=== PATIENT | male | born 1950 | race Caucasian/White ===

== ENCOUNTER 2018-02-08 19:58 | Emergency (ER) | payer MEDICARE, OTHER ==
[~2018-02-08] VITALS: Ht 177.8 cm; Wt 82.6 kg
[~2018-02-08 19:58] MED LIST: ALLOPURINOL 10100 M1 PO; ANTIHISTAMINE25 MG PO; CARVEDILOL12.5 MG PO; CHLORTHALIDONE25 MG PO; FISH OIL 1,001000 M2 PO; FLAX SEED OIL1000 MG PO; FLEXERIL PO; GLUCOSAMINE HC500 MG PO; HYDROCODON-ACE1 EAC7 PO; LISINOPRIL20 MG PO; MOBIC15 MG PO; OMEPRAZOLE 20 M20 M1 PO; PEPCID40 MG PO; XANAX 0.5 MG0.5 MG PO; ZANAFLEX4 MG PO
[2018-02-08] MEDS ORDERED: ZANAFLEX4 MG (20:19)
[2018-02-08 21:42] LABS: URINE BILIRUBIN NEGATIVE (Negative); URINE BLOOD NEGATIVE (Negative); URINE CLARITY CLEAR; URINE COLOR YELLOW; URINE GLUCOSE-RANDOM NEGATIVE (Negative); URINE KETONES NEGATIVE (Negative); URINE LEUKOCYTES-REFLEX NEGATIVE (Negative); URINE NITRITE-REFLEX NEGATIVE (Negative); URINE PROTEIN NEGATIVE (Negative); URINE SPECIFIC GRAVITY <= 1.005 (1.005-1.030); URINE UROBILINOGEN 0.2 E.U./dl (0.2-1.0)
[2018-02-08] MEDS ORDERED: NORCO 7.5-3251 EACH PO (21:42)
[2018-02-08] MEDS ORDERED: IBUPROFEN 600600 M1 PO (21:42)
[2018-02-08 22:23] VITALS: BP 144/85
== END 2018-02-08 22:25 | disposition home or self-care (01) ==
LOC: M.ERS 19:58
PROVIDERS: Nurse Practitioner Family
DX: S22.32XA Fracture of one rib, left side, initial encounter for closed fracture (principal); I10 Essential (primary) hypertension; Z96.642 Presence of left artificial hip joint; W17.89XA Other fall from one level to another, initial encounter; Y93.89 Activity, other specified; Y92.89 Other specified places as the place of occurrence of the external cause; Y99.8 Other external cause status

== ENCOUNTER → 2019-11-20 | Outpatient (CLI) | payer MEDICARE, OTHER ==
[~2019-11-20] MED LIST changes: +IBUPROFEN 600600 M1 PO; +NORCO 7.5-3251 EACH PO; +ZANAFLEX4 MG
== END ==
LOC: M.CT 11-15 17:11
DX: R90.82 White matter disease, unspecified (principal); R41.3 Other amnesia; R47.81 Slurred speech; R51 Headache; F41.1 Generalized anxiety disorder